=== PATIENT | male | born 1930 | race Caucasian/White ===

== ENCOUNTER 2017-08-09 19:20 | Observation (INO) ==
[2017-08-09] MEDS ORDERED: Ipratropium/Albuterol Neb 3 ML IH ONE (19:31)
--- NOTE | 2017-08-09 19:39 | Emergency Department Note ---
Disposition Clinical Impression: Acute exacerbation of chronic obstructive airways disease Community acquired pneumonia Qualifiers: Laterality: unspecified laterality Qualified Code(s): J18.9 - Pneumonia, unspecified organism Disposition: Admitted As Inpatient Condition: Undetermined Referrals: Rubina Encinas CNP [Primary Care Provider] - Forms: ED Satisfaction Letter Time of Disposition: 20:48 SOB HPI - General Chief Complaint: ED Shortness of Breath/Dyspnea Stated Complaint: respiratory distress Time Seen by Provider: 08/09/17 19:30 Source: patient, EMS Mode of arrival: EMS Limitations: no limitations Nursing Notes Reviewed: Yes Vital Signs Reviewed: Yes - History of Present Illness 87-year-old male with history of hypertension, hyperlipidemia, COPD with home nebulizers, arrives to the emergency department with complaint of difficulty in breathing and respiratory distress. The patient notes a dry cough over the course of the past 1-2 weeks. The patient was being evaluated by his PCP for this complaint. was told that they were concerned about his heart. He denies any chest pain, abdominal pain, nausea, diaphoresis. His noted that a few days ago he became very short of breath and required nebulizers which did help. The patient states that earlier today he became very pale and very short of breath and did not have any relief with nebulizers. It was at that time the patient's decided to bring the patient in for evaluation via EMS. Further questions or concerns or any other complaints noted by patient. EMS administered one DuoNeb as well as 125 Solu-Medrol which helped relieve the patient's symptoms. He was 88% upon their arrival. This was on room air. The patient does not wear home oxygen. The patient is resting comfortably and speaking in full sentences at this time but is still fairly tachypneic. No other complaints noted. - Related Data Home Medications Medication Instructions Recorded Confirmed Amlodipine Besylate 2.5 mg PO 06/24/15 Aspirin [Adult Low Dose Aspirin EC] 06/24/15 Atorvastatin Calcium [Lipitor] 20 mg PO 06/24/15 Cholecalciferol (Vitamin D3) 2,000 unit PO 06/24/15 [Vitamin D] Clobetasol Propionate [Cormax] 25 ml TP 06/24/15 Fexofenadine HCl 180 mg PO 06/24/15 Finasteride [Propecia] 1 mg PO 06/24/15 Fish Oil/Dha/Epa [Fish Oil 1,200 06/24/15 mg Fish Oil] Fluocinonide 60 ml TP 06/24/15 Furosemide [Lasix] 20 mg PO 06/24/15 Gabapentin [Neurontin] 06/24/15 Glucosamine Sulfate Dipot Chlr 06/24/15 [Glucosamine] HydrOXYzine 10 mg PO 06/24/15 Lisinopril [Zestril] 06/24/15 Metoprolol [Lopressor] 50 mg PO BID 06/24/15 06/24/15 Oxycodone HCl/Acetaminophen 06/24/15 [Endocet 2.5-325 mg Tablet] Proair Respiclick 06/24/15 Ranitidine HCl [Zantac] 150 mg PO 06/24/15 Simvastatin [Zocor] 06/24/15 Previous Rx's Medication Instructions Recorded Azithromycin [Azithromycin 6-Tab 250 mg PO DAILY #6 tab 06/24/15 Pack] Benzonatate [Tessalon] 200 mg PO TID PRN #30 capsule 06/24/15 DiphenhydraMINE [Benadryl] 25 mg PO Q6HR PRN #20 capsule 06/24/15 Allergies Allergy/AdvReac Type Severity Reaction Status Date / Time Penicillins [PCN] AdvReac Rash Verified 08/09/17 19:32 Sulfa (Sulfonamide AdvReac Rash Verified 08/09/17 19:32 Antibiotics) All systems ED: reviewed and negative except as stated. Constitutional: Denies: fever, chills ENT ED: Denies: congestion Cardiovascular: Denies: chest pain Respiratory: Reports: cough, dyspnea, wheezes. Denies: sputum production Gastrointestinal: Denies: abdominal pain Genitourinary: Denies: urgency Musculoskeletal: Denies: back pain Integumentary: Denies: rash Neurological: Denies: headache Past Medical History - Past Medical History Attestation: Yes The following information was validated with the patient. Source: patient, old records reviewed, obtained from family Medical history: Reports: CVA, diabetes, hyperlipidemia, hypertension Surgical history: Reports: non-contributory Psychiatric history: Reports: no psych history - Social History Smoking Status: Never smoker Smokeless Tobacco Status: No Alcohol use: Reports: none Drug use: Reports: none Physical Exam - General Limitations: no limitations General appearance: alert, in distress (Mild respiratory) - Head Head exam: atraumatic, normocephalic, normal inspection - Eye Eye exam: Present: normal appearance, PERRL, EOMI - ENT ENT exam: normal exam, normal oropharynx, mucous membranes moist - Neck Neck exam: Present: normal inspection, full ROM, trachea midline - Chest Chest inspection: Present: normal inspection, symmetric chest wall rise - Respiratory Respiratory exam: Present: respiratory distress (Mild), other (Tachypnea) - Cardiovascular Cardiovascular exam: Present: normal rhythm, tachycardia, normal heart sounds - Abdominal Exam Abdominal exam: Present: soft, Non-Tender. Absent: tenderness, distention, guarding, rebound, rigidity - Extremities Exam Extremities exam: Present: normal inspection, full ROM. Absent: tenderness, pedal edema - Back Exam Back exam: Present: normal inspection, full ROM. Absent: tenderness - Neurological Exam Neurological exam: Present: alert, oriented X3 - Skin Skin exam: Present: warm, dry, intact, normal color Course Vital Signs Temperature 98.8 F 08/09/17 19:23 Pulse Rate 127 08/09/17 19:23 Respiratory Rate 28 08/09/17 19:23 Blood Pressure 183/80 08/09/17 19:23 O2 Sat by Pulse Oximetry 94 08/09/17 19:23 Temperature 98.8 F 08/09/17 19:23 Pulse Rate 113 08/09/17 20:35 Respiratory Rate 22 08/09/17 20:35 Blood Pressure 149/70 08/09/17 20:35 O2 Sat by Pulse Oximetry 93 08/09/17 20:35 Oxygen Delivery Oxygen Delivery Nasal Cannula Shortness of Breath/Dyspnea - [facility] Narrative Medical decision making narrative: Workup in the emergency department demonstrates findings consistent with COPD exacerbation. The patient's chest x-ray does demonstrate concern for possible interstitial pneumonia. The patient does have a bump in his leukocytosis from 9 to 16 today. The chest x-ray does demonstrate this concern for interstitial pneumonia of the patient was administered 1 dose of levofloxacin here in the emergency department. The patient is resting comfortably after receiving a second DuoNeb as well as 1 in route and the siting Medrol. The patient will be admitted to the hospital at this time for further workup and care. Patient was made aware and agrees to plan. Accepted by Dr. Mulligan. - Lab Data Lab results reviewed: Yes I reviewed the patient's lab results. Result diagrams: 08/09/17 19:31 08/09/17 19:31 Lab Results 08/09/17 08/09/17 08/09/17 Range/Units 19:31 19:31 19:31 WBC 16.0 H D (4.3-11.1) K/mcL RBC 4.01 L (4.19-5.50) M/mcL Hgb 12.2 L (12.9-16.9) g/dL Hct 36.5 L (37.5-50.1) % MCV 91.0 (83.0-100.0) fL MCH 30.4 (28.0-33.3) pg MCHC 33.4 (31.6-35.5) g/dL RDW 12.9 (11.5-14.5) % Plt Count 340 (140-400) K/mcL MPV 9.9 (9.4-12.4) fL Immature Gran % 0.5 (0-4) % Seg Neutrophils % 78.8 % Lymphocytes % 12.8 % Monocytes % 6.0 % Eosinophils % 1.5 % Basophils % 0.4 % Neutrophils # 12.6 H (1.6-8.9) K/mcL Lymphocytes # 2.1 (0.6-4.6) K/mcL Monocytes # 1.0 (0.0-1.3) K/mcL Eosinophils # 0.2 (0.0-0.6) K/mcL Basophils # 0.1 (0.0-0.2) K/mcL Sodium 137 (136-145) mEq/L Potassium 4.0 (3.5-5.1) mEq/L Chloride 103 (98-107) mEq/L Carbon Dioxide 24 (23-29) mEq/L BUN 19 (8-23) mg/dL Creatinine 1.16 (0.70-1.30) mg/dL Est GFR ( Amer) > 60 (> 60) Est GFR (Non-Af Amer) 60 (> 60) BUN/Creatinine Ratio 16 (6-26) Glucose 160 H (70-105) mg/dL Calculated Osmolality 290 (280-300) Calcium 9.7 (8.6-10.3) mg/dL Troponin I < 0.03 (< 0.04) ng/mL B-Natriuretic Peptide 110 H (Less than 100) pg/mL - Radiology Data Radiology results reviewed: Yes I reviewed the patient's radiology results. Chest X-Ray 08/09/17 19:31 IMPRESSION: 1. Findings most likely related to mild congestive heart failure versus diffuse interstitial pneumonitis on a background of senescent pulmonary changes and sequela from old granulomatous disease. 2. Calcific atherosclerotic disease aorta. 3. Otherwise unremarkable chest. D/ / Moises Rust / Moises Rust Interpreting Provider: Moises Rust - EKG Data EKG attestation: Yes I reviewed and interpreted this EKG. EKG results narrative: Heart rate 119 beats for minute. Sinus tachycardia. No ST elevation or ST depression noted. EKG overall similar in morphology to EKG from 02/07/2011.
--- NOTE | 2017-08-09 19:49 | Emergency Department Note ---
Disposition Clinical Impression: Acute exacerbation of chronic obstructive airways disease Community acquired pneumonia Qualifiers: Laterality: unspecified laterality Qualified Code(s): J18.9 - Pneumonia, unspecified organism Disposition: Admitted As Inpatient Condition: Undetermined General Adult HPI - General Chief complaint: ED Shortness of Breath/Dyspnea Stated complaint: respiratory distress Time Seen by Provider: 08/09/17 19:30 Source: patient, EMS Mode of arrival: EMS Limitations: no limitations Nursing Notes Reviewed: Yes Vital Signs Reviewed: Yes - History of Present Illness Pain Scale: 0 - Related Data Home Medications Medication Instructions Recorded Confirmed Atorvastatin Calcium [Lipitor] 20 mg PO 06/24/15 Cholecalciferol (Vitamin D3) 2,000 unit PO 06/24/15 [Vitamin D] Clobetasol Propionate [Cormax] 25 ml TP 06/24/15 Finasteride [Propecia] 1 mg PO 06/24/15 Fish Oil/Dha/Epa [Fish Oil 1,200 06/24/15 mg Fish Oil] Furosemide [Lasix] 20 mg PO 06/24/15 Glucosamine Sulfate Dipot Chlr 06/24/15 [Glucosamine] Metoprolol [Lopressor] 50 mg PO BID 06/24/15 06/24/15 Proair Respiclick 06/24/15 RX: Amlodipine Besylate 2.5 mg PO 06/24/15 RX: Aspirin [Adult Low Dose 06/24/15 Aspirin EC] RX: Fexofenadine HCl 180 mg PO 06/24/15 RX: Fluocinonide 60 ml TP 06/24/15 RX: Gabapentin [Neurontin] 06/24/15 RX: HydrOXYzine 10 mg PO 06/24/15 RX: Lisinopril [Zestril] 06/24/15 RX: Oxycodone HCl/Acetaminophen 06/24/15 [Endocet 2.5-325 mg Tablet] RX: Simvastatin [Zocor] 06/24/15 Ranitidine HCl [Zantac] 150 mg PO 06/24/15 Previous Rx's Medication Instructions Recorded Azithromycin [Azithromycin 6-Tab 250 mg PO DAILY #6 tab 06/24/15 Pack] Benzonatate [Tessalon] 200 mg PO TID PRN #30 capsule 06/24/15 DiphenhydraMINE [Benadryl] 25 mg PO Q6HR PRN #20 capsule 03/12/16 Allergies Allergy/AdvReac Type Severity Reaction Status Date / Time Penicillins [PCN] AdvReac Rash Verified 08/09/17 19:32 Sulfa (Sulfonamide AdvReac Rash Verified 08/09/17 19:32 Antibiotics) Constitutional: Denies: fever, chills ENT ED: Denies: congestion Cardiovascular: Denies: chest pain Respiratory: Reports: cough, dyspnea, wheezes. Denies: sputum production Gastrointestinal: Denies: abdominal pain Genitourinary: Denies: urgency Musculoskeletal: Denies: back pain Integumentary: Denies: rash Neurological: Denies: headache Past Medical History - Past Medical History Medical history: Reports: CVA, diabetes, hyperlipidemia, hypertension Surgical history: Reports: non-contributory Psychiatric history: Reports: no psych history - Social History Smoking Status: Never smoker Smokeless Tobacco Status: No Alcohol use: Reports: none Drug use: Reports: none Physical Exam - General Limitations: no limitations General appearance: alert, in distress (Mild respiratory) Course Vital Signs Temperature 98.8 F 08/09/17 19:23 Pulse Rate 127 08/09/17 19:23 Respiratory Rate 28 08/09/17 19:23 Blood Pressure 183/80 08/09/17 19:23 O2 Sat by Pulse Oximetry 94 08/09/17 19:23 Temperature 98.8 F 08/09/17 19:23 Pulse Rate 113 08/09/17 20:35 Respiratory Rate 22 08/09/17 20:35 Blood Pressure 149/70 08/09/17 20:35 O2 Sat by Pulse Oximetry 93 08/09/17 20:35 Oxygen Delivery Oxygen Delivery Nasal Cannula Medical Decision Making - Lab Data Result diagrams: 08/09/17 19:31 08/09/17 19:31 Lab Results 08/09/17 08/09/17 08/09/17 Range/Units 19:31 19:31 19:31 WBC 16.0 H D (4.3-11.1) K/mcL RBC 4.01 L (4.19-5.50) M/mcL Hgb 12.2 L (12.9-16.9) g/dL Hct 36.5 L (37.5-50.1) % MCV 91.0 (83.0-100.0) fL MCH 30.4 (28.0-33.3) pg MCHC 33.4 (31.6-35.5) g/dL RDW 12.9 (11.5-14.5) % Plt Count 340 (140-400) K/mcL MPV 9.9 (9.4-12.4) fL Immature Gran % 0.5 (0-4) % Seg Neutrophils % 78.8 % Lymphocytes % 12.8 % Monocytes % 6.0 % Eosinophils % 1.5 % Basophils % 0.4 % Neutrophils # 12.6 H (1.6-8.9) K/mcL Lymphocytes # 2.1 (0.6-4.6) K/mcL Monocytes # 1.0 (0.0-1.3) K/mcL Eosinophils # 0.2 (0.0-0.6) K/mcL Basophils # 0.1 (0.0-0.2) K/mcL Sodium 137 (136-145) mEq/L Potassium 4.0 (3.5-5.1) mEq/L Chloride 103 (98-107) mEq/L Carbon Dioxide 24 (23-29) mEq/L BUN 19 (8-23) mg/dL Creatinine 1.16 (0.70-1.30) mg/dL Est GFR ( Amer) > 60 (> 60) Est GFR (Non-Af Amer) 60 (> 60) BUN/Creatinine Ratio 16 (6-26) Glucose 160 H (70-105) mg/dL Calculated Osmolality 290 (280-300) Calcium 9.7 (8.6-10.3) mg/dL Troponin I < 0.03 (< 0.04) ng/mL B-Natriuretic Peptide 110 H (Less than 100) pg/mL Critical Care Time Critical Care Time: No Attestation Statement - Attestation Attestation: I, Bennett Mckenzie MD, personally evaluated this patient and discussed their management with the resident physician. I reviewed the resident's note and agree with the documented findings, medical decision making, and plan of care. 87-year-old male presents to the emergency department by ambulance with a complaint of increased cough and increased shortness of breath for about 2 weeks prior to arrival. Symptoms have become much worse over the past 3 days. Acutely worse this evening and he called EMS. EMS reported his oxygen saturation was 88% on room air on their arrival. Patient received a DuoNeb treatment and Solu-Medrol in route to the emergency department. On arrival here the patient's oxygen saturation was 94% on room air. Patient is however still somewhat tachypneic with a frequent hacking cough. He denies any sputum production with the cough. No definite fever. No chest pain. Patient does have a history of COPD and uses a nebulizer and inhalers at home. He does not have home oxygen. reports that at home he was so out of breath that he could not get around or do anything and he got very pale and a little clammy. On examination patient is a well-developed well-nourished elderly male in mild respiratory distress. He is alert and oriented 3. There is no cyanosis or diaphoresis. Chest is nontender to palpation. Breath sounds are decreased bilaterally but no rales or wheezes noted. Heart is tachycardic and regular. Abdomen is soft and nontender with normal bowel sounds. No pedal edema. EKG shows sinus tachycardia with ventricular rate of 119. 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 No acute ST segment elevation noted. There is minimal ST depression laterally in V5 and V6. Chest x-ray shows: Findings most likely related to mild congestive heart failure versus diffuse interstitial pneumonitis on a background of senescent pulmonary changes and sequela from old granulomatous disease. Labs reviewed. Leukocytosis with WBC of 16. Patient was placed on oxygen at 2 L/m by nasal cannula. He received additional DuoNeb treatments. The hospitalist, Dr. Mulligan, was consulted and accepted admission of the patient.
[2017-08-09 20:02] LABS: Basophils # 0.1 K/mcL (0.0-0.2); Basophils % 0.4 %; Eosinophils # 0.2 K/mcL (0.0-0.6); Eosinophils % 1.5 %; Hematocrit 36.5 % (37.5-50.1); Hemoglobin 12.2 g/dL (12.9-16.9); Immature Granulocytes % 0.5 % (0-4); Lymphocytes # 2.1 K/mcL (0.6-4.6); Lymphocytes % 12.8 %; Mean Corpuscular HGB Conc 33.4 g/dL (31.6-35.5); Mean Corpuscular Hemoglobin 30.4 pg (28.0-33.3); Mean Platelet Volume 9.9 fL (9.4-12.4); Neutrophils # 12.6 K/mcL (1.6-8.9); Platelet Count 340 K/mcL (140-400); Red Blood Count 4.01 M/mcL (4.19-5.50); Red Cell Distribution Width 12.9 % (11.5-14.5); Segmented Neutrophils % 78.8 %
[2017-08-09] MEDS ORDERED: Levofloxacin 750 MG/150 ML 750 MG/150 ML BAG IVPB ONE (20:20)
[2017-08-09 20:23] LABS: BUN/Creatinine Ratio 16 (6-26); Blood Urea Nitrogen 19 mg/dL (8-23); Calcium 9.7 mg/dL (8.6-10.3); Carbon Dioxide 24 mEq/L (23-29); Chloride 103 mEq/L (98-107); Glucose 160 mg/dL (70-105); Osmolality,Calculated 290 (280-300); Sodium 137 mEq/L (136-145); Troponin I < 0.03 ng/mL (< 0.04); eGFR For African Americans > 60 (> 60); eGFR For Non-African Americans 60 (> 60)
[2017-08-09] MEDS ORDERED: Naloxone 0.4 MG/ML INJ IVP PRN (22:29)
[2017-08-09] MEDS ORDERED: Acetaminophen 325 MG TABLET PO PRN (22:29)
[2017-08-09] MEDS ORDERED: Ipratropium/Albuterol Neb 3 ML IH PRN (22:34)
[2017-08-09] MEDS ORDERED: Aspirin Enteric Coated 81 MG Tablet PO SCH (22:45)
--- NOTE | 2017-08-10 | Internal Med History&Physical ---
Date of Encounter: 08/09/17 Time of Encounter: 21:00 Internal Medicine - H&P: HPI Chief complaint: Shortness of breath Admitted From: Home Plans for Post Hospital Care: Home History of present illness: Mr. Duvall is a 87 year old male presented to ER for shortness of breath. Past medical history is significant for COPD, hypertension, GERD, diabetes on diet control only. Patient said he has dry cough for about 6 months. He started to have shortness of breath since Friday( 6 days ago), he has been treated by his primary care doctor. Symptoms not improved. Patient has subjective fever with some chills. Denies chest pain. Patient denies night sweating or recent body weight loss. In the emergency room, he was found leukocytosis. Chest x-ray shows possible pneumonia. Patient was treated with steroids and nebulizer, his shortness of breath has improved after treatment. Patient was admitted for pneumonia and COPD exacerbation. Past Med Surg Social Fam HX - Past Medical History Medical history: CVA, diabetes, hyperlipidemia, hypertension Psychiatric history: no psych history - Past Surgical History Surgical History: non-contributory - Social History Smoking Status: Never smoker Smokeless Tobacco Status: No Alcohol use: none Drug use: none - Family History Mother History Unknown: Yes Internal Medicine - H&P: Meds Albuterol Sulfate [Proair Hfa] 1 puff IH Q4HR 06/24/15 [History] Amlodipine Besylate 5 mg PO DAILY 06/24/15 [History] Aspirin [Adult Low Dose Aspirin EC] 81 mg PO ONCE 06/24/15 [History] Atorvastatin Calcium [Lipitor] 40 mg PO DAILY 06/24/15 [History] Cholecalciferol (Vitamin D3) [Vitamin D] 500 mg PO BID 06/24/15 [History] Fish Oil/Dha/Epa [Fish Oil 1,200 mg Fish Oil] 1,200 mg PO BID 06/24/15 [History] Furosemide [Lasix] 20 mg PO DAILY 06/24/15 [History] Glucosamine Sulfate Dipot Chlr [Glucosamine] 1,000 mg PO BID 06/24/15 [History] Lisinopril [Zestril] 40 mg PO DAILY 06/24/15 [History] Metoprolol [Lopressor] 50 mg PO DAILY 06/24/15 [History] Ranitidine HCl [Zantac] 150 mg PO BID 06/24/15 [History] Ascorbate Calcium [Vitamin C] 500 mg PO DAILY 08/09/17 [History] Loratadine [Claritin] 10 mg PO DAILY 08/09/17 [History] 3 Allergy/AdvReac Type Severity Reaction Status Date / Time Penicillins [PCN] AdvReac Rash Verified 08/09/17 19:32 Sulfa (Sulfonamide AdvReac Rash Verified 08/09/17 19:32 Antibiotics) All Systems PM: A 10-system review of systems was performed and is negative for pertinent findings except as documented above in the HPI. - Constitutional Vitals: Temp Pulse Resp BP Pulse Ox 98.7 F 99 19 174/76 98 08/09/17 22:49 08/09/17 23:17 08/09/17 22:49 08/09/17 22:49 08/09/17 22:49 General appearance: Present: A&O X 3, no acute distress, answers questions appropriately - Head Head exam: Present: atraumatic, normocephalic - Eye Eye exam: Present: PERRL, conjuntiva pink, sclera anicteric Pupils: Present: PERRL - Neck Neck exam general surgery: Present: supple, trachea midline. Absent: lymphadenopathy - Respiratory Respiratory exam: Present: CTAB. Absent: accessory muscle use, rales, rhonchi, wheezes - Cardiovascular Cardiovascular exam: Present: RRR, +S1, +S2. Absent: diastolic murmur, gallop, rubs, systolic murmur - GI/Abdominal GI/Abdominal exam: Present: normal bowel sounds, soft, no peritoneal signs. Absent: distended, tenderness - Extremities Exam Extremities exam: Present: warm, radial pulses palpable and symmetrical. Absent : calf tenderness, cyanotic, pedal edema - Neurological Exam Neurological exam: Present: CN II-XII intact, oriented X3, no focal deficits. Absent: pronater drift, facial droop, speech deficit - Skin Skin exam: Present: dry, intact Internal Med - H&P Results - Labs CBC & Chem 7: 08/09/17 19:31 08/09/17 19:31 - EKG Data -: EKG Interpreted by Myself EKG shows normal: sinus rhythm Rate: tachycardia - Assessment and plan (1) Shortness of breath Current Visit: Yes Status: Acute Assessment and plan: Patient has increased the shortness of breath. Has leukocytosis, subjective fever, and a chronic cough. Chest x-ray suspect pneumonia. Consider pneumonia or COPD exacerbation. However, will order echocardiogram to rule out CHF. (2) Chronic cough Current Visit: Yes Status: Acute Assessment and plan: Patient has a chronic cough for 6 months. History of remote smoking. - CT chest to rule out malignancy - Have noticed the patient is on lisinopril. Patient has dry cough, if cough persists after treatment, may consider switch TUTU inhibitor to ARB. (3) Hypertension Current Visit: Yes Status: Acute Assessment and plan: Continue home medications Qualifiers: Hypertension type: essential hypertension Qualified Code(s): I10 - Essential (primary) hypertension (4) Diabetes Current Visit: Yes Status: Acute Assessment and plan: Continue diet control. Follow up glucose level Qualifiers: Diabetes mellitus type: type 2 Diabetes mellitus intermodal owner operator truck driver insulin use: without intermodal owner operator truck driver use Diabetes mellitus complication status: without complication Qualified Code(s): E11.9 - Type 2 diabetes mellitus without complications (5) DVT prophylaxis Current Visit: Yes Status: Acute Assessment and plan: Heparin subcutaneously (6) Acute exacerbation of chronic obstructive airways disease Current Visit: Yes Status: Acute Assessment and plan: We will place patient on steroid, antibiotic, and bronchodilator. Continue oxygen supportive treatment. (7) Community acquired pneumonia Current Visit: Yes Status: Acute Assessment and plan: Place patient on Levaquin IV. Qualifiers: Laterality: unspecified laterality Qualified Code(s): J18.9 - Pneumonia, unspecified organism - Time Spent With Patient Total time spent is greater than 50% in coordination of care (as documented) at patient's floor/unit and/or counseling patient:40 minutes Greater than 35 minutes
[2017-08-10] MEDS: Ipratropium/Albuterol Neb 3 ML IH SCH ×4 (04:13→21:06)
[2017-08-10 04:25] LABS: Basophils % 0.2 %; Hematocrit 33.7 % (37.5-50.1); Hemoglobin 11.4 g/dL (12.9-16.9); Immature Granulocytes % 0.7 % (0-4); Lymphocytes # 0.5 K/mcL (0.6-4.6); Lymphocytes % 3.2 %; Mean Corpuscular HGB Conc 33.8 g/dL (31.6-35.5); Mean Corpuscular Hemoglobin 30.6 pg (28.0-33.3); Mean Corpuscular Volume 90.6 fL (83.0-100.0); Mean Platelet Volume 10.8 fL (9.4-12.4); Monocytes # 0.2 K/mcL (0.0-1.3); Neutrophils # 15.8 K/mcL (1.6-8.9); Platelet Count 300 K/mcL (140-400); Red Blood Count 3.72 M/mcL (4.19-5.50); Segmented Neutrophils % 94.9 %
[2017-08-10 04:51] LABS: BUN/Creatinine Ratio 17 (6-26); Blood Urea Nitrogen 19 mg/dL (8-23); Calcium 9.5 mg/dL (8.6-10.3); Carbon Dioxide 21 mEq/L (23-29); Chloride 103 mEq/L (98-107); Glucose 222 mg/dL (70-105); Magnesium 1.8 mg/dL (1.6-2.6); Osmolality,Calculated 293 (280-300); Potassium 4.2 mEq/L (3.5-5.1); Sodium 137 mEq/L (136-145); eGFR For African Americans > 60 (> 60); eGFR For Non-African Americans > 60 (> 60)
[2017-08-10] MEDS: *HR* Heparin 5,000 UNIT/ML VIAL SQ SCH ×2 (05:13→18:10)
[2017-08-10] MEDS: Famotidine 20 MG TABLET PO SCH ×2 (09:10→20:56)
[2017-08-10] MEDS: Loratadine 10 MG TABLET PO SCH (09:10)
[2017-08-10] MEDS: amLODIPine 5 MG TABLET PO SCH (09:11)
[2017-08-10] MEDS: Lisinopril 20 MG TABLET PO SCH (09:11)
[2017-08-10] MEDS: Cholecalciferol (D-3) 1,000 UNIT TABLET PO SCH (09:11)
[2017-08-10] MEDS: Furosemide 20 MG TABLET PO SCH (09:11)
[2017-08-10] MEDS: predniSONE 20 MG TABLET PO SCH (09:11)
[2017-08-10] MEDS: Ascorbic Acid 500 MG TABLET PO SCH (09:11)
[2017-08-10] MEDS: EPA PO SCH ×2 (09:55→19:20)
[2017-08-10] MEDS: DHA PO SCH ×2 (09:55→19:20)
[2017-08-10] MEDS: FISH OIL PO SCH ×2 (09:55→19:20)
--- NOTE | 2017-08-10 10:15 | Internal Med Progress Note ---
Date of Encounter: 08/10/17 Time of Encounter: 10:13 - Assessment and plan (1) Acute exacerbation of chronic obstructive airways disease Current Visit: Yes Status: Acute Assessment and plan: No wheezing at this time Cont steroid, antibiotic, and bronchodilator. Continue oxygen supportive treatment. (2) Community acquired pneumonia Current Visit: Yes Status: Acute Assessment and plan: Place patient on Levaquin IV. breathing tx guaifensin for cough Qualifiers: Laterality: unspecified laterality Qualified Code(s): J18.9 - Pneumonia, unspecified organism (3) Shortness of breath Current Visit: Yes Status: Acute Assessment and plan: Patient had increased shortness of breath. Had leukocytosis, which has improved subjective fever, and a chronic cough. Chest x-ray suspect pneumonia. Consider pneumonia or COPD exacerbation. However, will order echocardiogram to rule out CHF.- awaiting results (4) Chronic cough Current Visit: Yes Status: Acute Assessment and plan: Patient has a chronic cough for 6 months. History of remote smoking. - CT chest to rule out malignancy - Have noticed the patient is on lisinopril. Patient has dry cough, if cough persists after treatment, may consider switch TUTU inhibitor to ARB. Guaifensin (5) Hypertension Current Visit: Yes Status: Acute Assessment and plan: Stable Continue home medications Qualifiers: Hypertension type: essential hypertension Qualified Code(s): I10 - Essential (primary) hypertension (6) Diabetes Current Visit: Yes Status: Acute Assessment and plan: Continue diet control. 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 Diabetes mellitus complication status: without complication Qualified Code(s): E11.9 - Type 2 diabetes mellitus without complications (7) DVT prophylaxis Current Visit: Yes Status: Acute Assessment and plan: Heparin subcutaneously - Time Spent With Patient Total time spent is greater than 50% in coordination of care (as documented) at patient's floor/unit and/or counseling patient: - Constitutional Vitals: Temp Pulse Resp BP Pulse Ox 98.0 F 88 15 134/56 94 08/10/17 07:08 08/10/17 07:08 08/10/17 07:08 08/10/17 07:08 08/10/17 07:08 General appearance: Present: A&O X 3, no acute distress, answers questions appropriately Internal Medicine: Result - Labs CBC & Chem 7: 08/10/17 03:26 08/10/17 03:26 Labs: Short CBC 08/10/17 Range/Units 03:26 WBC 16.7 H (4.3-11.1) K/mcL Hgb 11.4 L (12.9-16.9) g/dL Hct 33.7 L (37.5-50.1) % Plt Count 300 (140-400) K/mcL Neutrophils # 15.8 H (1.6-8.9) K/mcL BMP 08/10/17 03:26 Sodium 137 Potassium 4.2 Chloride 103 Carbon Dioxide 21 L BUN 19 Creatinine 1.13 Glucose 222 H Calcium 9.5 - Impressions Impressions Chest CT 08/09/17 22:37 IMPRESSION: 1. Emphysema. 2. Coronary artery disease. 3. Scattered tiny pulmonary nodules are probably granulomas. Recommend follow-up: In a low-risk patient, no routine follow-up. In a high-risk patient, optional CT at 12 months. D/ / Gustavo Kim MD / Gustavo Kim MD Interpreting Provider: Gustavo Kim MD Consult Discharge Plan - Plan Referrals: Rubina Encinas CNP [Primary Care Provider] -
[2017-08-10] MEDS ORDERED: *HR* Dextrose 50 % in Water (Syg) 50 ML SYRINGE IVP PRN (10:22)
[2017-08-10] MEDS ORDERED: D5% in Water 1,000 ML IVC PRN (10:22)
[2017-08-10] MEDS ORDERED: Dextrose Gel 15 GM/37.5 ML TUBE PO PRN ×2 (10:22)
[2017-08-10] MEDS: Insulin LISPRO 300 UNITS/3 ML VIAL SQ SCH ×3 (11:48→20:57)
[2017-08-10] MEDS: Aspirin Enteric Coated 81 MG Tablet PO SCH (21:05)
[2017-08-11] MEDS: Ipratropium/Albuterol Neb 3 ML IH SCH ×4 (03:46→21:42)
[2017-08-11 05:25] LABS: Basophils % 0.1 %; Hematocrit 32.9 % (37.5-50.1); Hemoglobin 10.9 g/dL (12.9-16.9); Immature Granulocytes % 0.5 % (0-4); Lymphocytes # 1.1 K/mcL (0.6-4.6); Lymphocytes % 8.3 %; Mean Corpuscular HGB Conc 33.1 g/dL (31.6-35.5); Mean Corpuscular Hemoglobin 29.7 pg (28.0-33.3); Mean Corpuscular Volume 89.6 fL (83.0-100.0); Mean Platelet Volume 10.5 fL (9.4-12.4); Monocytes # 0.9 K/mcL (0.0-1.3); Neutrophils # 10.6 K/mcL (1.6-8.9); Platelet Count 321 K/mcL (140-400); Red Blood Count 3.67 M/mcL (4.19-5.50); Red Cell Distribution Width 13.2 % (11.5-14.5); Segmented Neutrophils % 84.1 %
[2017-08-11 05:44] LABS: BUN/Creatinine Ratio 20 (6-26); Blood Urea Nitrogen 22 mg/dL (8-23); Calcium 9.3 mg/dL (8.6-10.3); Carbon Dioxide 24 mEq/L (23-29); Chloride 106 mEq/L (98-107); Glucose 150 mg/dL (70-105); Osmolality,Calculated 294 (280-300); Potassium 3.9 mEq/L (3.5-5.1); Sodium 139 mEq/L (136-145); eGFR For African Americans > 60 (> 60); eGFR For Non-African Americans > 60 (> 60)
[2017-08-11] MEDS: *HR* Heparin 5,000 UNIT/ML VIAL SQ SCH (06:03)
[2017-08-11] MEDS: Lisinopril 20 MG TABLET PO SCH (07:41)
[2017-08-11] MEDS: Furosemide 20 MG TABLET PO SCH (07:41)
[2017-08-11] MEDS: Loratadine 10 MG TABLET PO SCH (07:41)
[2017-08-11] MEDS: amLODIPine 5 MG TABLET PO SCH (07:41)
[2017-08-11] MEDS: Famotidine 20 MG TABLET PO SCH ×2 (07:41→21:24)
[2017-08-11] MEDS: Aspirin Enteric Coated 81 MG Tablet PO SCH (07:42)
[2017-08-11] MEDS: predniSONE 20 MG TABLET PO SCH (07:42)
[2017-08-11] MEDS: Cholecalciferol (D-3) 1,000 UNIT TABLET PO SCH (07:42)
[2017-08-11] MEDS: Ascorbic Acid 500 MG TABLET PO SCH (07:42)
[2017-08-11] MEDS: Insulin LISPRO 300 UNITS/3 ML VIAL SQ SCH ×4 (07:45→21:24)
[2017-08-11] MEDS: FISH OIL PO SCH ×2 (07:51→21:28)
[2017-08-11] MEDS: DHA PO SCH ×2 (07:51→21:28)
[2017-08-11] MEDS: EPA PO SCH ×2 (07:51→21:28)
[2017-08-11] MEDS ORDERED: Aspirin Enteric Coated 81 MG Tablet PO SCH (09:00)
--- NOTE | 2017-08-11 10:14 | Electrocardiograph Report ---
[place] [id number] Test Date: 2017-08-09 Pat Name: Denver Duvall Department: 102 Room: 3B32 Gender: M Community Services Manager: Whitney : 1930 Requested By: Bijan Gonzalez Order Number: [id number] Reading MD: Elise Solorzano Measurements Intervals [place] Rate: 119 P: 76 [place]: 185 QRS: 2 QRSD: 72 T: 64 QT: 295 QTc: 366 Interpretive Statements SINUS TACHYCARDIA SEPTAL MYOCARDIAL INFARCTION [40+ ms Q WAVE IN V1/V2], PROBABLY OLD Electronically Signed On 08-11-2017 10:12:42 EDT by Elise Solorzano
--- NOTE | 2017-08-11 11:07 | Internal Med Progress Note ---
Date of Encounter: 08/11/17 Time of Encounter: 11:03 - Assessment and plan (1) Acute exacerbation of chronic obstructive airways disease Current Visit: Yes Status: Acute Assessment and plan: No wheezing at this time, seems to be improving Cont steroid, antibiotic, and bronchodilator. Continue oxygen supportive treatment.-We will perform 6 minute walk to see if he qualifies for home O2 (2) Community acquired pneumonia Current Visit: Yes Status: Acute Assessment and plan: Continue Levaquin IV.-White counts trending down breathing tx guaifensin for cough Qualifiers: Laterality: unspecified laterality Qualified Code(s): J18.9 - Pneumonia, unspecified organism (3) Shortness of breath Current Visit: Yes Status: Acute Assessment and plan: Shortness of breath has improved while at rest we will eagerly the patient and check SPO2 Had leukocytosis, which has improved subjective fever, and a chronic cough. Chest x-ray suspect pneumonia. Consider pneumonia or COPD exacerbation. However, will order echocardiogram to rule out CHF.- EF 70%- Normal LV chamber size, wall thickness and function. Mild left ventricular diastolic dysfunction. Normal right ventricular structure and function. Mild aortic sclerosis. Mean gradient 12 mmHg. No evidence of pulmonary hypertension. Noticed drop in hemoglobin no active bleeding noted. We will perform anemia workup (4) Chronic cough Current Visit: Yes Status: Acute Assessment and plan: Patient has a chronic cough for 6 months. History of remote smoking.-States cough has improved today - CT chest to rule out malignancy-scattered tiny pulmonary nodules probably granulomas. Recommend follow-up: In a low-risk patient, no routine follow-up. In a high-risk patient, optional CT at 12 months. - Have noticed the patient is on lisinopril. Patient has dry cough, if cough persists after treatment, may consider switch TUTU inhibitor to ARB. 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 Today 10.9 is been trending down since admission which she was 12.1 at that time. Patient denies any past history of anemia or GI bleed. He is not on any anticoagulation. He states his last EGD/colonoscopy was approximately 8 years ago he did have some polyps removed. He denies any melena or hematochezia. She does admit to approximately 15 pound weight loss over the past 4 months. We will do an anemia workup, obtain stool for occult blood. We will make patient nothing by mouth after midnight-pending results-consult GI as needed Hold Heparin SCD Qualifiers: Anemia type: unspecified type Qualified Code(s): D64.9 - Anemia, unspecified (8) DVT prophylaxis Current Visit: Yes Status: Acute Assessment and plan: Heparin subcutaneously - Time Spent With Patient Total time spent is greater than 50% in coordination of care (as documented) at patient's floor/unit and/or counseling patient: - Subjective Interval history: Patient seen and examined at bedside, presently denies any shortness of breath, states coughing has improved. He is not on any home oxygen, oxygen has been stable rest we will do a walk to see if he qualifies. Also noted drop in hemoglobin we will do anemia workup. I did review treatment plan with the patient as well as who verbalized understanding - Constitutional Vitals: Temp Pulse Resp BP Pulse Ox 97.9 F 80 16 125/64 95 08/11/17 07:17 08/11/17 07:17 08/11/17 10:17 08/11/17 07:17 08/11/17 10:17 General appearance: Present: A&O X 3, no acute distress, answers questions appropriately - Head Head exam: Present: atraumatic, normocephalic - Eye Eye exam: Present: PERRL, conjuntiva pink, sclera anicteric Pupils: Present: PERRL - Neck Neck exam general surgery: Present: supple, trachea midline. Absent: lymphadenopathy - Respiratory Respiratory exam: Present: CTAB. Absent: accessory muscle use, rales, rhonchi, wheezes - Cardiovascular Cardiovascular exam: Present: RRR, +S1, +S2. Absent: diastolic murmur, gallop, rubs, systolic murmur - GI/Abdominal GI/Abdominal exam: Present: normal bowel sounds, soft, no peritoneal signs. Absent: distended, tenderness - Extremities Exam Extremities exam: Present: warm, radial pulses palpable and symmetrical. Absent : calf tenderness, cyanotic, pedal edema - Neurological Exam Neurological exam: Present: CN II-XII intact, oriented X3, no focal deficits. Absent: pronater drift, facial droop, speech deficit - Skin Skin exam: Present: dry, intact Internal Medicine: Result - Labs CBC & Chem 7: 08/11/17 04:17 08/11/17 04:17 Labs: Short CBC 08/11/17 Range/Units 04:17 WBC 12.6 H (4.3-11.1) K/mcL Hgb 10.9 L (12.9-16.9) g/dL Hct 32.9 L (37.5-50.1) % Plt Count 321 (140-400) K/mcL Neutrophils # 10.6 H (1.6-8.9) K/mcL BMP 08/11/17 04:17 Sodium 139 Potassium 3.9 Chloride 106 Carbon Dioxide 24 BUN 22 Creatinine 1.09 Glucose 150 H Calcium 9.3 - Impressions Impressions Echocardiogram 08/10/17 22:36 Impressions: LVEF 70%. Normal LV chamber size, wall thickness and function. Mild left ventricular diastolic dysfunction. Normal right ventricular structure and function. Mild aortic sclerosis. Mean gradient 12 mmHg. No evidence of pulmonary hypertension. Left Ventricular Wall Motion: Rest Echo Findings All wall segments showed normal motion. Findings: Study Quality * Technically adequate exam. ECG Findings * Normal sinus rhythm. Left Ventricle * LVEF 70%. * Normal LV chamber size, wall thickness and function. * Mild left ventricular diastolic dysfunction. Right Ventricle * Normal right ventricular structure and function. Left Atrium * Mildly dilated left atrium. Right Atrium * Mildly dilated right atrium. Aortic Valve * Trileaflet aortic valve. * Mildly sclerotic aortic valve leaflets. * No aortic regurgitation. * Mild aortic sclerosis. Mean gradient 12 mmHg. Mitral Valve * Mild mitral annular calcification. * No mitral stenosis. * No mitral regurgitation. Tricuspid Valve * Normal tricuspid valve structure and function. * Trace tricuspid regurgitation. * No evidence of pulmonary hypertension. Pulmonic Valve * Pulmonic valve is not well visualized. * No pulmonic regurgitation. Aorta * Normally sized aortic root. Pericardium * The pericardium appears normal. IVC * Normal IVC dimensions and inspiratory collapse. Pulmonary Artery * Normal visualized portions of the main pulmonary artery. Consult Discharge Plan - Plan Referrals: Rubina Encinas, ELENA [Primary Care Provider] -
[2017-08-11 11:20] LABS: % Iron Saturation 32 % (20-55); Iron 96 mcg/dL (65-175); Transferrin 216 mg/dL (203-362)
[2017-08-11 11:42] LABS: Folate 21.6 ng/mL (3.0-16.0)
[2017-08-11] MEDS ORDERED: Levofloxacin 750 MG/150 ML 750 MG/150 ML BAG IVPB SCH (18:00)
[2017-08-12] MEDS: Ipratropium/Albuterol Neb 3 ML IH SCH ×3 (03:44→16:08)
[2017-08-12] MEDS: Insulin LISPRO 300 UNITS/3 ML VIAL SQ SCH ×2 (07:57→12:27)
[2017-08-12] MEDS: Aspirin Enteric Coated 81 MG Tablet PO SCH (07:58)
[2017-08-12] MEDS: Loratadine 10 MG TABLET PO SCH (07:58)
[2017-08-12] MEDS: predniSONE 20 MG TABLET PO SCH (07:58)
[2017-08-12] MEDS: Famotidine 20 MG TABLET PO SCH (07:58)
[2017-08-12] MEDS: Ascorbic Acid 500 MG TABLET PO SCH (07:58)
[2017-08-12] MEDS: Furosemide 20 MG TABLET PO SCH (07:58)
[2017-08-12] MEDS: Lisinopril 20 MG TABLET PO SCH (07:58)
[2017-08-12] MEDS: Cholecalciferol (D-3) 1,000 UNIT TABLET PO SCH (07:58)
[2017-08-12] MEDS: amLODIPine 5 MG TABLET PO SCH (07:58)
[2017-08-12] MEDS: FISH OIL PO SCH (08:00)
[2017-08-12] MEDS: DHA PO SCH (08:00)
[2017-08-12] MEDS: EPA PO SCH (08:00)
--- NOTE | 2017-08-12 13:37 | Internal Med Progress Note ---
Date of Encounter: 08/12/17 Time of Encounter: 13:34 - Assessment and plan (1) Community acquired pneumonia Current Visit: Yes Status: Acute Assessment and plan: WBC trending down as of yesterday. CBC today to further evaluate leukocytosis Patient's respiratory status has improved, no longer experiencing respiratory distress Patient resting comfortable on room air. Suitable for discharge Ambulate in berg and assess SPO2 status with ambulation. If no hypoxia noted patient okay for discharge Continue bronchodilators upon discharge 5 day course of oral steroids Levaquin 750 mg by mouth daily 4 days Follow-up with PCP in one week OTC treatment for cough with cough suppressants Qualifiers: Laterality: unspecified laterality Qualified Code(s): J18.9 - Pneumonia, unspecified organism (2) Acute exacerbation of chronic obstructive airways disease Current Visit: Yes Status: Acute Assessment and plan: No wheezing at this time, seems to be improving Cont steroid, antibiotic, and bronchodilator. Ambulate in all with 6 minute walk to assess respiratory status with activity. The patient was hypoxic during this time he will qualify for home O2 (3) Shortness of breath Current Visit: Yes Status: Acute Assessment and plan: Shortness of breath has improved while at rest, continue to monitor respiratory status. Per yesterday's lab leukocytosis that improved, no labs this morning, obtain CBC now. Chest x-ray on admission shows suspect pneumonia. Consider pneumonia or COPD exacerbation. However, will order echocardiogram to rule out CHF.- EF 70% CHF ruled out Normal LV chamber size, wall thickness and function. Mild left ventricular diastolic dysfunction. Normal right ventricular structure and function. Mild aortic sclerosis. Mean gradient 12 mmHg. No evidence of pulmonary hypertension. Noticed drop in hemoglobin no active bleeding noted. We will perform anemia workup WBC improving with antibiotics, shortness of breath improving, on room air with no respiratory distress Due to diagnosis of pneumonia the patient will need to transition to oral antibiotics upon discharge Sent home with bronchodilators and a 5 day course of oral steroids (4) Chronic cough Current Visit: Yes Status: Acute Assessment and plan: Chronic dry cough for the last 6 months. Remote history of smoking. Additionally, should be noted the patient is taking lisinopril which could also be the cause of dry cough. Cough persists consider switching from TUTU inhibitor to angiotension receptor alessandra CT of chest to rule out malignancy showed tiny pulmonary nodules probably granulomas. These findings should be shared with primary care provider and a follow-up CT should be obtained based on patient's risks (5) Hypertension Current Visit: Yes Status: Acute Assessment and plan: Blood pressure Stable Continue home medications Qualifiers: Hypertension type: essential hypertension Qualified Code(s): I10 - Essential (primary) hypertension (6) Diabetes Current Visit: Yes Status: Acute Assessment and plan: History of type 2 diabetes, normally takes oral hypoglycemic agents to control blood sugars as well as controlled diabetic. Currently on sliding scale coverage while inpatient. 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 He has a baseline hemoglobin of around around 13-14. Yesterday 10.9 (been trending down since admission which she was 12.1 at that time. Patient denies any past history of anemia or GI bleed. He is not on any anticoagulation. His last EGD/ colonoscopy was approximately 8 years ago he did have some polyps removed. He denies any melena or hematochezia. She does admit to approximately 10 pound weight loss over the past 4 months but reports he has been trying to eat healthier. Serum iron 96, transferrin 216, ferritin 296. Vitamin B12 347, folate 21.6 Fecal occult blood negative No obvious active bleeding noted Patient has been instructed to follow up with gastroenterology and primary care provider upon discharge Patient and at bedside denies any further questions, verifies understanding of the need to follow up with gastroenterology upon discharge. The denies any further questions at this time, and denies any further needs. Qualifiers: Anemia type: unspecified type Qualified Code(s): D64.9 - Anemia, unspecified (8) DVT prophylaxis Current Visit: Yes Status: Acute Assessment and plan: Heparin subcutaneously - Time Spent With Patient Total time spent is greater than 50% in coordination of care (as documented) at patient's floor/unit and/or counseling patient: - Subjective Interval history: Mr. Duvall is a 87 year old male presented to ER for shortness of breath. Past medical history is significant for COPD, hypertension, GERD, diabetes. He is complaining of shortness of breath since Friday (6 days ago) he has been treated by his primary care provider. Symptoms have not improved. Chest x-ray findings admission revealed suspected pneumonia. He was placed on IV antibiotic therapy. Also reporting some subjective fever with chills. As of today the patient reports he is breathing much better and does not require oxygen support. - Constitutional Vitals: Temp Pulse Resp BP Pulse Ox 97.9 F 74 20 125/59 94 08/12/17 11:14 08/12/17 11:14 08/12/17 11:14 08/12/17 11:14 08/12/17 11:14 General appearance: Present: cooperative, A&O X 3, no acute distress, answers questions appropriately - Head Head exam: Present: atraumatic, normocephalic - Eye Eye exam: Present: PERRL, conjuntiva pink, sclera anicteric Pupils: Present: PERRL - Respiratory Respiratory exam: Present: decreased breath sounds, CTAB. Absent: accessory muscle use, rales, rhonchi, wheezes - Cardiovascular Cardiovascular exam: Present: RRR, +S1, +S2. Absent: diastolic murmur, gallop, rubs, systolic murmur - Extremities Exam Extremities exam: Present: warm, radial pulses palpable and symmetrical. Absent : calf tenderness, cyanotic, pedal edema - Neurological Exam Neurological exam: Present: alert, CN II-XII intact, oriented X3, no focal deficits. Absent: pronater drift, facial droop, speech deficit - Skin Skin exam: Present: dry, intact Internal Medicine: Result - Labs CBC & Chem 7: 08/12/17 15:02 08/11/17 04:17 Consult Discharge Plan - Plan Additional Instructions: Follow-up with primary care provider in one week to reassess respiratory status and for resolution of pneumonia Follow-up with gastroenterology in 2-3 weeks due to anemia of unknown cause Discuss gastroenterology follow-up with primary care provider Referrals: Rubina Encinas CNP [Primary Care Provider] - 08/21/17 2:30 pm Leydi Florentino MD [Partnered Physician] - (We have web requested you an appointment with Dr. Florentino's office. They should calling you with an appointment) Prescriptions: Levofloxacin [Levaquin] 750 mg PO DAILY 4 Days #4 tablet predniSONE [PredniSONE] 40 mg PO DAILY 5 Days #5 tablet
--- NOTE | 2017-08-12 13:57 | Discharge Summary ---
- NOTES TO OUTPATIENT PROVIDER Notes to Outpatient Provider: Patient admitted with cough, shortness of breath. Found to have pneumonia. He was treated with Levaquin, bronchodilators and steroids. He has been sent home with oral Levaquin as instructed to follow up within a week with his PCP. Additionally, during the stay was found to have anemia. Workup revealed no obvious cause of bleeding. Serum iron, transferrin and ferritin unremarkable, B12 and folate unremarkable. Fecal occult blood found to be negative. Patient would benefit from a follow-up as an outpatient with gastroenterology for further assessment and evaluation. He has been instructed to follow-up in 2-3 weeks. PCP to help facilitate follow-up. Orders not resulted at time of discharge: Pending orders 08/12/17 13:27 CBC [Complete Blood Count] [HEME] Routine Date of Encounter: 08/12/17 Time of Encounter: 13:53 - Discharge Diagnosis (1) Community acquired pneumonia Priority: Primary Status: Acute Assessment and Plan: WBC trending down as of yesterday. CBC today to further evaluate leukocytosis Patient's respiratory status has improved, no longer experiencing respiratory distress Patient resting comfortable on room air. Suitable for discharge Ambulate in berg and assess SPO2 status with ambulation. If no hypoxia noted patient okay for discharge 5 day course of oral steroids Levaquin 750 mg by mouth daily 4 days Follow-up with PCP in one week OTC treatment for cough with cough suppressants Qualifiers: Laterality: unspecified laterality Qualified Code(s): J18.9 - Pneumonia, unspecified organism (2) Acute exacerbation of chronic obstructive airways disease Priority: Secondary Status: Acute Assessment and Plan: No wheezing at this time, seems to be improving Cont steroid, antibiotic, and bronchodilator. Ambulate in all with 6 minute walk to assess respiratory status with activity. The patient was hypoxic during this time he will qualify for home O2 (3) Shortness of breath Priority: Secondary Status: Acute Assessment and Plan: Shortness of breath has improved while at rest, continue to monitor respiratory status. Per yesterday's lab leukocytosis that improved, no labs this morning, obtain CBC now. Chest x-ray on admission shows suspect pneumonia. Consider pneumonia or COPD exacerbation. However, will order echocardiogram to rule out CHF.- EF 70% CHF ruled out Normal LV chamber size, wall thickness and function. Mild left ventricular diastolic dysfunction. Normal right ventricular structure and function. Mild aortic sclerosis. Mean gradient 12 mmHg. No evidence of pulmonary hypertension. Noticed drop in hemoglobin no active bleeding noted. We will perform anemia workup WBC improving with antibiotics, shortness of breath improving, on room air with no respiratory distress Due to diagnosis of pneumonia the patient will need to transition to oral antibiotics upon discharge Sent home with bronchodilators and a 5 day course of oral steroids (4) Chronic cough Priority: Secondary Status: Acute Assessment and Plan: Chronic dry cough for the last 6 months. Remote history of smoking. Additionally, should be noted the patient is taking lisinopril which could also be the cause of dry cough. Cough persists consider switching from TUTU inhibitor to angiotension receptor alessandra CT of chest to rule out malignancy showed tiny pulmonary nodules probably granulomas. These findings should be shared with primary care provider and a follow-up CT should be obtained based on patient's risks (5) Hypertension Priority: Secondary Status: Acute Assessment and Plan: Blood pressure Stable Continue home medications Qualifiers: Hypertension type: essential hypertension Qualified Code(s): I10 - Essential (primary) hypertension (6) Diabetes Priority: Secondary Status: Acute Assessment and Plan: History of type 2 diabetes, normally takes oral hypoglycemic agents to control blood sugars as well as controlled diabetic. Currently on sliding scale coverage while inpatient. Upon discharge resume oral hypoglycemic agents Qualifiers: Diabetes mellitus type: type 2 Diabetes mellitus residential insulin use: without residential use Diabetes mellitus complication status: without complication Qualified Code(s): E11.9 - Type 2 diabetes mellitus without complications (7) Anemia Priority: Secondary Status: Acute Assessment and Plan: Normocytic, normochromic Anemia, etiology unclear. He has a baseline hemoglobin of around around 13-14. Yesterday 10.9 (been trending down since admission which she was 12.1 at that time. Patient denies any past history of anemia or GI bleed. He is not on any anticoagulation. His last EGD/ colonoscopy was approximately 8 years ago he did have some polyps removed. He denies any melena or hematochezia. She does admit to approximately 10 pound weight loss over the past 4 months but reports he has been trying to eat healthier. Serum iron 96, transferrin 216, ferritin 296. Vitamin B12 347, folate 21.6 Fecal occult blood negative No obvious active bleeding noted Patient has been instructed to follow up with gastroenterology and primary care provider upon discharge Patient and at bedside denies any further questions, verifies understanding of the need to follow up with gastroenterology upon discharge. The denies any further questions at this time, and denies any further needs. Qualifiers: Anemia type: unspecified type Qualified Code(s): D64.9 - Anemia, unspecified (8) DVT prophylaxis Priority: Secondary Status: Acute Assessment and Plan: Heparin subcutaneously Hospital course: Mr. Duvall is a 87 year old male who is being treated for community-acquired pneumonia, and an acute exacerbation of COPD. Please see assessment and plan for hospital course. Discharge discussed with: patient, family, nurse Time spent discussing smoking cessation with patient: more than 10 minutes - Time Spent with Patient Total time spent providing and/or coordinating discharge services: Less than 30 minutes - Discharge Medications Prescriptions: Levofloxacin [Levaquin] 750 mg PO DAILY 4 Days #4 tablet predniSONE [PredniSONE] 40 mg PO DAILY 5 Days #5 tablet Home Medications: Albuterol Sulfate [Proair Hfa] 1 puff IH Q4HR 06/24/15 [History] Amlodipine Besylate 5 mg PO DAILY 06/24/15 [History] Aspirin [Adult Low Dose Aspirin EC] 81 mg PO ONCE 06/24/15 [History] Atorvastatin Calcium [Lipitor] 20 mg PO DAILY 06/24/15 [History] Cholecalciferol (Vitamin D3) [Vitamin D3] 500 mg PO BID 06/24/15 [History] Fish Oil/Dha/Epa [Fish Oil 1,200 mg Fish Oil] 1,200 mg PO BID 06/24/15 [History] Furosemide [Lasix] 20 mg PO DAILY 06/24/15 [History] Glucosamine Sulfate Dipot Chlr [Glucosamine] 1,000 mg PO BID 06/24/15 [History] Lisinopril [Zestril] 40 mg PO DAILY 06/24/15 [History] Metoprolol [Lopressor] 50 mg PO BID 06/24/15 [History] Ranitidine HCl [Zantac] 150 mg PO BID 06/24/15 [History] Ascorbate Calcium [Vitamin C] 500 mg PO DAILY 08/09/17 [History] Loratadine [Claritin] 10 mg PO DAILY 08/09/17 [History] Budesonide/Formoterol 160/4.5 [Symbicort 160/4.5] 2 puff IH BIDR 08/10/17 [ History] Montelukast [Singulair] 10 mg PO DAILY 08/10/17 [History] metFORMIN [Glucophage] 500 mg PO BIDWM 08/10/17 [History] GuaiFENesin/Dextromethorphan [Robitussin/Dm] 10 ml PO Q6H PRN udc 08/12/17 [Rx] Levofloxacin [Levaquin] 750 mg PO DAILY 4 Days #4 tablet 08/12/17 [Rx] predniSONE [PredniSONE] 40 mg PO DAILY 5 Days #5 tablet 08/12/17 [Rx] Allergies/Adverse Reactions: 3 Allergy/AdvReac Type Severity Reaction Status Date / Time Penicillins [PCN] AdvReac Rash Verified 08/09/17 19:32 Sulfa (Sulfonamide AdvReac Rash Verified 08/09/17 19:32 Antibiotics) Date of admission: 08/09/17 22:29 Primary care physician: Rubina Encinas [employer] Discharging clinician: Wicho Palacios Anticipated date of discharge: 08/12/17 - Constitutional Vitals: Temp Pulse Resp BP Pulse Ox 97.9 F 74 20 125/59 94 08/12/17 11:14 08/12/17 11:14 08/12/17 11:14 08/12/17 11:14 08/12/17 11:14 General appearance: Present: cooperative, A&O X 3, no acute distress, answers questions appropriately - Head Head exam: Present: atraumatic, normocephalic - Eye Eye exam: Present: PERRL, conjuntiva pink, sclera anicteric Pupils: Present: PERRL - Neck Neck exam general surgery: Present: supple, trachea midline. Absent: lymphadenopathy - Respiratory Respiratory exam: Present: decreased breath sounds, CTAB. Absent: accessory muscle use, rales, rhonchi, wheezes - Cardiovascular Cardiovascular exam: Present: RRR, +S1, +S2. Absent: diastolic murmur, gallop, rubs, systolic murmur - GI/Abdominal GI/Abdominal exam: Present: normal bowel sounds, soft, no peritoneal signs. Absent: distended, tenderness - Extremities Exam Extremities exam: Present: warm, radial pulses palpable and symmetrical. Absent : calf tenderness, cyanotic, pedal edema - Neurological Exam Neurological exam: Present: CN II-XII intact, oriented X3, no focal deficits. Absent: pronater drift, facial droop, speech deficit - Skin Skin exam: Present: dry, intact - Patient Status Disposition: Home, Self-Care Condition: Good Functional capacity at discharge: independent ambulation Overall status at discharge: patient is progressing back to baseline - Discharge Instructions Follow Up With: Rubina Encinas CNP [Primary Care Provider] - 08/21/17 2:30 pm Leydi Florentino MD [Partnered Physician] - (We have web requested you an appointment with Dr. Florentino's office. They should calling you with an appointment) Additional Instructions: Follow-up with primary care provider in one week to reassess respiratory status and for resolution of pneumonia Follow-up with gastroenterology in 2-3 weeks due to anemia of unknown cause Discuss gastroenterology follow-up with primary care provider - Diet and Activity Activity: resume usual activities as tolerated Diet: advance to your usual diet
[2017-08-12 15:13] LABS: Basophils % 0.3 %; Eosinophils % 0.1 %; Hematocrit 36.4 % (37.5-50.1); Hemoglobin 12.2 g/dL (12.9-16.9); Immature Granulocytes % 1.4 % (0-4); Lymphocytes # 0.6 K/mcL (0.6-4.6); Lymphocytes % 6.1 %; Mean Corpuscular HGB Conc 33.5 g/dL (31.6-35.5); Mean Corpuscular Hemoglobin 29.8 pg (28.0-33.3); Mean Platelet Volume 10.2 fL (9.4-12.4); Monocytes # 0.2 K/mcL (0.0-1.3); Monocytes % 1.7 %; Neutrophils # 9.4 K/mcL (1.6-8.9); Platelet Count 344 K/mcL (140-400); Red Blood Count 4.09 M/mcL (4.19-5.50); Red Cell Distribution Width 13.2 % (11.5-14.5); Segmented Neutrophils % 90.4 %
[2017-08-12 16:27] VITALS: BP 113/59
== END 2017-08-12 17:05 | disposition home or self-care (01) | DRG 194 ==
LOC: 3BNU 19:20 → EMEROO 19:20 → 3BNU 22:35
PROVIDERS: ADMIT Internal Medicine; ATTEND Internal Medicine